=== PATIENT | female | born 1960 | race Caucasian/White ===

== ENCOUNTER 2019-03-23 12:00 | Day surgery (SDC) | payer OTHER ==
[~2019-03-23] VITALS: Ht 152.4 cm; Wt 60.8 kg
[~2019-03-23 12:00] MED LIST: MOBIC15 MG PO; MULTIVITAMINS1 EAC7 PO; OMEPRAZOLE20 MG PO; TENORMIN50 MG PO
--- NOTE | 2019-03-23 14:54 | NUR ---
03/23/19 Brandyn3 Rylee Arenas 1450-PATIENT ARRIVED TO PACU ON 3L NC AWAKE DENIES PAIN OR NAUSEA. PATIENT ORIENTED TO PACU LEGALLY BLIND. ABDOMEN SOFT. PASSING GAS. RR EVEN.
--- NOTE | 2019-03-25 16:19 | OR ---
[facility] [address], [place] [address] Signed DATE OF OPERATION: 03/23/2019 SURGEON: Connie Lambert MD PREOPERATIVE DIAGNOSES: 1. Prior history of gastric ulcer. 2. Recent findings of anemia. POSTOPERATIVE DIAGNOSES: 1. Mild diffuse gastritis without ulceration or bleeding. 2. Poor flap valve consistent with small hiatal hernia. 3. Diverticular changes of sigmoid. No polyps, cancer, or colitis. PROCEDURES PERFORMED: 1. Esophagogastroduodenoscopy with biopsy. 2. Total colonoscopy to cecum. ANESTHESIA: Intravenous sedation, fentanyl 150 mcg and Versed 5 mg total. INDICATION: This 58-year-old white woman is a patient of ANASTACIO Santoyo and is legally blind. She has a previous history of gastric ulcer she says and longstanding reflux disease for which she takes Prilosec on a routine basis. She also takes meloxicam every other day for arthritis type problems. She has had no hematemesis or blood per rectum that she is aware of, though her blindness precludes good assessment in that regard. Occult fecal blood and given her prior history of gastric ulceration and so forth, upper endoscopy is indicated. Additionally, consideration for colonoscopy was made for the same reason. She understands the risks of bleeding, infection, and perforation related to colonoscopy and wished to proceed. FINDINGS: On upper endoscopy, she had mild diffuse gastritis, but no lesions to account for gross bleeding. There was a hiatal hernia but no sign of esophagitis. She had no neoplasm. CLOtest was negative. On colonoscopy, the prep was good. Complete colonoscopy was undertaken of the cecum without question. She only had a few scattered diverticula, but no lesion to account for bleeding per se. DESCRIPTION OF PROCEDURE: The patient was brought to the endoscopy suite and placed in lateral decubitus position Electronically Signed By: CONNIE LAMBERT MD 03/25/19 1619 PATIENT NAME: SUNNY LIANG OPERATIVE REPORT DATE OF : 56 REPORT #: [id number] PHYSICIAN: CONNIE LAMBERT MD PCP: Aspen Blunt REPORT IS CONFIDENTIAL AND NOT TO BE RELEASED WITHOUT AUTHORIZATION [facility] [address], [place] [address] Signed after undergoing topical Hurricaine spray hypopharyngeal anesthesia. A bite block was placed, though she was edentulous. An Olympus video upper endoscope was passed in the hypopharynx. The vocal cords were partially visualized and what was visualized was normal. The scope was advanced to the esophagus throughout its length, it was entirely normal. The scope was advanced to the stomach, which was insufflated with air. There was mild reticular mucosal changes suggestive of chronic gastritis. Pylorus was normal. Scope was passed through the duodenum. There was mild duodenitis of the bulbar portion, although 2nd and 3rd portions were normal. There was no sign of ulceration. Biopsies were obtained. The scope was withdrawn to the stomach. Biopsies were taken of the antrum. Retroflexed view showed mild proximal gastritis. There was a poor flap valve consistent with small hiatal hernia. Scope was withdrawn and distal esophageal biopsy was obtained, although the mucosa was normal. Narrow-Band imaging showed no sign of other abnormality, specifically no Campuzano's epithelium. Careful withdrawal of scope showed no other findings of concern. Plans were made for colonoscopy. The table was rotated and additional sedation given. Digital rectal examination was normal. An Olympus video colonoscope was passed in the rectum and manipulated throughout the colon. Diverticula were seen in the sigmoid and left colon. Ultimately, the cecum was intubated. The ileocecal valve and appendiceal orifice were normal. Scope was withdrawn from that point and examination throughout showed no sign of abnormality other than the diverticula. Retroflexed view was normal as well. The scope was removed. The patient was taken to recovery room in good condition. CONCLUDING DIAGNOSIS: Positive fecal occult blood without clear source other than mild gastritis. She takes meloxicam on an every other day basis and continues with PPI medication. Would have her diminish meloxicam as much as possible and I am going to continue with Prilosec. She will return to the ongoing care of ANASTACIO Santoyo. MD BRIGHT English/SHAHBAZL /[id number] cc: CONNIE Kimball Electronically Signed By: CONNIE LAMBERT MD 03/25/19 1619 PATIENT NAME: SUNNY LIANG OPERATIVE REPORT DATE OF : 56 REPORT #: [id number] PHYSICIAN: CONNIE LAMBERT MD PCP: Aspen Blunt REPORT IS CONFIDENTIAL AND NOT TO BE RELEASED WITHOUT AUTHORIZATION [address] [address] Signed Copies: Aspen Blunt ~ Electronically Signed By: CONNIE LAMBERT MD 03/25/19 1619 PATIENT NAME: SUNNY LIANG OPERATIVE REPORT DATE OF : 56 REPORT #: [id number] PHYSICIAN: CONNIE LAMBERT MD PCP: Aspen Blunt REPORT IS CONFIDENTIAL AND NOT TO BE RELEASED WITHOUT AUTHORIZATION
== END 2019-03-23 15:25 | disposition home or self-care (01) ==
LOC: DS 12:00 → OPS 12:00 → DS 13:00 → OPS 13:00
PROVIDERS: Surgery
PROC: 0DB38ZX Excision of Lower Esophagus, Via Natural or Artificial Opening Endoscopic, Diagnostic (ICD-10-PCS; 2019-03-23)
PROC: 0DJD8ZZ Inspection of Lower Intestinal Tract, Via Natural or Artificial Opening Endoscopic (ICD-10-PCS; 2019-03-23)
PROC: 0DB98ZX Excision of Duodenum, Via Natural or Artificial Opening Endoscopic, Diagnostic (ICD-10-PCS; principal; 2019-03-23 13:00)
PROC: 0DB78ZX Excision of Stomach, Pylorus, Via Natural or Artificial Opening Endoscopic, Diagnostic (ICD-10-PCS; 2019-03-23 13:00)
DX: K29.80 Duodenitis without bleeding (principal); K29.50 Unspecified chronic gastritis without bleeding; K57.30 Diverticulosis of large intestine without perforation or abscess without bleeding; K44.9 Diaphragmatic hernia without obstruction or gangrene; H54.8 Legal blindness, as defined in USA; I10 Essential (primary) hypertension; F17.210 Nicotine dependence, cigarettes, uncomplicated; D64.9 Anemia, unspecified; Z87.19 Personal history of other diseases of the digestive system; Z88.0 Allergy status to penicillin; Z88.2 Allergy status to sulfonamides; Z91.030 Bee allergy status; Z87.11 Personal history of peptic ulcer disease; Z86.79 Personal history of other diseases of the circulatory system
CPT/HCPCS: 88305; 88342; 99153; G0500; J2250; J3010; J7120

== ENCOUNTER 2019-07-19 09:51 | Emergency (ER) | payer OTHER ==
[~2019-07-19] VITALS: Ht 152.4 cm; Wt 62.1 kg
== END 2019-07-19 11:07 | disposition home or self-care (01) ==
LOC: ED 09:51
DX: S92.511A Displaced fracture of proximal phalanx of right lesser toe(s), initial encounter for closed fracture (principal); F17.200 Nicotine dependence, unspecified, uncomplicated; Z88.0 Allergy status to penicillin; Z88.2 Allergy status to sulfonamides; Z91.030 Bee allergy status; Z79.899 Other long term (current) drug therapy; W22.8XXA Striking against or struck by other objects, initial encounter
CPT/HCPCS: 73660; 99283

== ENCOUNTER 2020-12-07 09:08 | Emergency (ER) | payer OTHER ==
[~2020-12-07] VITALS: Ht 152.4 cm; Wt 62.1 kg
[2020-12-07] MEDS ORDERED: MELOXICAM15 MG PO (09:23)
== END 2020-12-07 10:42 | disposition home or self-care (01) ==
LOC: ED 09:08
DX: M54.41 Lumbago with sciatica, right side (principal); Z88.0 Allergy status to penicillin; Z88.2 Allergy status to sulfonamides; Z91.030 Bee allergy status; Z79.899 Other long term (current) drug therapy
CPT/HCPCS: 72100; 73502; 99283-25

== ENCOUNTER 2022-06-14 05:47 | Day surgery (SDC) | payer OTHER ==
[~2022-06-14] VITALS: Ht 152.4 cm; Wt 69.1 kg
[~2022-06-14 05:47] MED LIST changes: +DEPAKOTE ER500 MG PO; +MELOXICAM15 MG PO
--- NOTE | 2022-06-14 05:50 | NUR ---
LE [id number]- PATIENT ARRIVES TO DAY SURGERY WITH SISTER. PATIENT WAS CHECKED IN. PATIENT WAS SALINE LOCKED AND WENT TO X-RAY FROM [id number]. PATIENT RETURNED AND IV FLUIDS CONNECTED AND RUNNING. PATIENT UP TO BATHROOM EVERY COUPLE OF HOURS. PATIENT UPDATED ON SURGERY EVERY 2 HOURS. SISTER STAYED WITH PATIENT. CALL LIGHT WAS WITHIN REACH AT ALL TIMES.
--- NOTE | 2022-06-14 06:16 | NUR ---
COVID 19 SWAB DONE TO BOTH NARES AND SENT TO IN HOUSE LAB.
[2022-06-14] MEDS ORDERED: CELEBREX100 MG PO (06:59)
--- NOTE | 2022-06-14 10:34 | NUR ---
PT ALERT, ORIENTED AND SUPPORTED BY HER SISTER BARRIE, WHO WILL REMAIN FOR DC. PT IS RATHER QUIET, BUT SEEMS PREPARED. GAVE COMFORT, SUPPORT AND PRAYED WITH BOTH. WILL FOLLOW NEEDED
[2022-06-14] MEDS ORDERED: OXYCODON-ACETA1 EAC2 PO (15:37)
[2022-06-14] MEDS ORDERED: IBUPROFEN600 MG PO (15:37)
[2022-06-14] MEDS ORDERED: ACETAMINOPHEN500 MG PO (15:37)
--- NOTE | 2022-06-14 15:41 | NUR ---
06/14/22 1541 Raegan Welsh 1513 PT ARRIVED TO PACU ON 10L VIA MASK, PT STARTS GRABBING AT HER FACE. ORAL AIRWAY IN PLACE AND RESP EVEN AND UNLABORED. 1514 ORAL AIRWAY REMOVED. PT CONTINUES TO GRAB AT HER FACE TWO RNS AT BEDSIDE REORIENTING PT TO PACU. VSS. 1516 O2 REMOVED AND PT EASILY FALLS ASLEEP OFF AND ON. 1520 PT REPORTS PAIN 06/02. 1527 PAIN MEDICATION GIVEN. O2 SAT 92% AND ENCOURGED TO DEEP BREATHE AND COUGH. PT ABLE TO DO SO. 1535 NC PLACED 2L DUE TO O2 SAT 86%, O2 INCREASED TO MID 90S. PT REPORTS PAIN IS BETTER 6-06/02. 1539 PT ASLEEP OFF AND ON. PT DENIES NAUSEA. VSS. PT SIPPING WATER PER REQUEST.
--- NOTE | 2022-06-14 15:55 | NUR ---
6853-PATIENT BACK TO ROOM FROM PACU ON 2L VIA SD. RECEIVED REPORT FROM [facility]. PATIENT IS DROWSY. RESP EVEN AND UNLABORED. ENCOURAGED PATIENT TO TAKE DEEP BREATHS. DRESSING IS CLEAN, DRY, AND INTACT. VSS. PATIENT EATING PUDDING AND TAKING SIPS OF WATER. SISTER IN ROOM. CALL LIGHT WITHIN REACH.
--- NOTE | 2022-06-14 16:26 | NUR ---
1615-O2 TITRATED OFF. O2 SATS IS 96% ON RA. PATIENT UP TO RESTROOM WITH 1 RN ASSIST. GAIT UNSTEADY BUT TOLERATED WELL. PATIENT VOIDED 250ML. 1620-PATIENT BACK TO ROOM AND LAYING DOWN. RATES PAIN 7/10. REFILLED PATIENTS WATER.
--- NOTE | 2022-06-14 16:40 | NUR ---
1631-PAIN MEDICATION GIVEN PER EMAR. 1640-PATIENT EATING SOUP AND SANDWICH.
--- NOTE | 2022-06-14 16:56 | NUR ---
1656- PATIENT SITTING UP IN BED FINISHING EATING. RESP EVEN AND UNLABORED. O2 SAT 93% ON RA. DRESSING WAS CLEAN, DRY, AND INTACT. RATES PAIN 4/10 AND DENIES NAUSEA. PATIENT IS READY TO GO HOME.
--- NOTE | 2022-06-14 17:24 | NUR ---
1710-PROVIDED PATIENT AND SISTER WITH DISCHARGE INSTRUCTIONS. ALL THERE QUESTIONS WERE ANSWERED. THEY WILL HAVE A FAMILY MEMBER DROP OFF HER PAIN RX AT THE PHARMACY. PATIENT AMBULATES TO WHEELCHAIR. RIDE PROVIDED TO THE FRONT OF HOSPITAL. PATIENT AND SISTER WANTED TO SIT OUTSIDE WHY THEY WAIT FOR THEIR CARE RIDE. ADVISED PATIENT IF THEY HAVE ANY QUESTIONS OR CONCERNS TO GO BACK IN TO THE HOSPITAL AND ASK FOR HELP. THEY BOTH VERBALIZED UNDERSTANDING.
--- NOTE | 2022-06-17 09:36 | OR ---
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 POSTOPERATIVE DIAGNOSES: 1. 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 2. Negative sentinel lymph node frozen pathology. PROCEDURES: 1. Injection of methylene blue for sentinel lymph node identification. 2. Deep left axillary lymph node biopsy x2. 3. Left needle localized, partial mastectomy upper inner quadrant. ANESTHESIA: General, LMA; Connie Leon CRNA INDICATIONS: This 61-year-old disabled white woman is a patient of ANASTACIO Santoyo and was found on mammogram by Dr. Villagomez to have an abnormality of the left breast at the 9 o'clock position. A cluster of pleomorphic microcalcifications was noted, considered suspicious. A stereotactic biopsy was performed by Dr. Pedro Capone of Radiology on May 07, 2022 confirming multifocal microinvasive ductal carcinoma as well as ductal carcinoma in situ. The majority of the biopsy was ductal carcinoma in situ. The patient has had no breast pain or no nipple discharge. She has no known family history of breast cancer. She was admitted at this time to undergo a left needle localized partial mastectomy of the offending lesion in the upper inner aspect of the breast as well as sentinel lymph node biopsy, possible axillary dissection depending on the extent of disease. The risk of bleeding, infection, cosmetic deformity, and other unforeseen complications was reviewed with her in detail. She and her caregivers understand and wished to proceed. FINDINGS: Uptake with radionuclide was notable in the low to mid axilla. Methylene blue injection was noted to have good uptake, two sentinel lymph nodes as well. Two sentinel lymph nodes were clearly identified. Both negative on frozen pathology. The remaining axilla Electronically Signed By: CONNIE LAMBERT MD 06/17/22 0936 PATIENT NAME: SUNNY LIANG OPERATIVE REPORT DATE OF : 56 REPORT #: [id number] PHYSICIAN: CONNIE LAMBERT MD PCP: Aspen Blunt REPORT IS CONFIDENTIAL AND NOT TO BE RELEASED WITHOUT AUTHORIZATION [facility] [address] [place], [place] [address] Signed was clinically negative. As regards the lesion of the breast needle localization allowed for wide resection which extended from the medial aspect toward the subareolar area. Specimen radiograph confirmed the offending lesion was within the excision site and clinically the margins appear negative. PROCEDURE IN DETAIL: The patient was brought to the operating room after having undergone needle localization of the lesion, the wire emanating from the medial aspect of the left breast as well as injection of radionuclide for sentinel lymph node identification. She was given a general LMA type anesthetic. Preoperative antibiotic clindamycin was given and sequential compression device stockings and heparin subcutaneously administered. After satisfactory anesthesia 1 mL of methylene blue dye was injected in the subepithelial area in the upper outer aspect of the left breast in the areolar margin. The breast was then prepared with spray Betadine solution and draped sterilely. The needle had been trimmed to half length which emanated from the medial aspect of the left breast. After sterile draping, a C-Trak gamma probe device was applied to the left axilla with the enclosed sterile sheath identifying an area of good uptake. Use of the specimen rather the mammogram as well as the radionuclide scan was used as reference throughout the operation. The area of active uptake was noted in the low to mid axilla and small transverse incision was made there. Using blunt electrocautery dissection, subcutaneous tissue was and ultimately axillary fat entered. A thin blue line of lymphatic uptake was noted. It was followed deep into the axilla where a 1.5 cm lymph node was identified and associated with much smaller 5 to 6 mm lymph node. Both were excised completely after application of hemoclips to the area. The sentinel nodes measured two in number and were with avid radionuclide uptake and blue dye. They were sent for frozen pathology. Additional interrogation of the left axilla showed no evidence of significant uptake of radionuclide or dye. The wound was then packed with laparotomy pack. Attention was turned towards the primary breast lesion, the upper inner aspect of the left breast. The wire emanated from the breast on the medial aspect in the transverse position. An incision was made along the line of skin tension transversely in the dermis with electrocautery. Wire was delivered into the wound and the base of the breast tissue was grasped with an Allis clamp, incorporating the wire itself. Wide resection was undertaken and transverse configuration taking special care to go wide deep and far along the path of the needle. This specimen was oriented with a short Electronically Signed By: CONNIE LAMBERT MD 06/17/22 0936 PATIENT NAME: SUNNY LIANG OPERATIVE REPORT DATE OF : 56 REPORT #: [id number] PHYSICIAN: CONNIE LAMBERT MD PCP: Aspen Blunt REPORT IS CONFIDENTIAL AND NOT TO BE RELEASED WITHOUT AUTHORIZATION [address] [address] Signed stitch superior and a long stitch lateral prior to explantation from the breast itself. Once the specimen was passed for specimen radiograph, irrigation was undertaken with sterile water. Hemostasis was assured with electrocautery and 2-0 silk suture as necessary. Parenchymal reapproximation was undertaken with interrupted 2-0 Vicryl in several layers and the skin closed with a running subcuticular 3-0 Vicryl. At this point, the axillary lymph nodes were returned and found to be negative for metastatic disease. Examination of the axilla showed no untoward bleeding. Irrigation was undertaken. The wound closed in layers of 2-0 Vicryl and a running subcuticular 3-0 Vicryl. Steri-Strips were applied to each site. By this point, the specimen radiograph confirmed that the offending abnormality of the preoperative mammogram was contained in the excised specimen. The patient was allowed to emerge from anesthesia, extubated, and taken to the recovery room in good condition having suffered no complication. Blood loss was less than 25 mL. Sponge, needle, and instrument counts reported as correct x3. MD BRIGHT English/SHAHBAZL /[id number] cc: CONNIE Kimball Copies: Aspen Blunt ~ Electronically Signed By: CONNIE LAMBERT MD 06/17/22 0936 PATIENT NAME: SUNNY LIANG OPERATIVE REPORT DATE OF : 56 REPORT #: [id number] PHYSICIAN: CONNIE LAMBERT MD PCP: Aspen Blunt REPORT IS CONFIDENTIAL AND NOT TO BE RELEASED WITHOUT AUTHORIZATION
--- NOTE | 2022-06-26 12:24 | PATH ---
[facility] [address] [facility] [place], [place] [address] Signed THIS IS AN ADDENDUM REPORT SPECIMEN(S): A LT SLN #1 2 SPECIMEN(S): B LT UPPER MEDIAL BREAST SPECIMEN SOURCE: A. LT SLN #1 2 B. LT UPPER MEDIAL BREAST CLINICAL HISTORY: Infiltrating duct carcinoma of left breast. Stitch avila SLN. FROZEN SECTION DIAGNOSIS: A. SLN #1+ #2: - No evidence of malignancy in two lymph nodes. Dr. Ponce, 06/14/22, 2:46 p.m. Frozen section diagnoses called to Dr. Avilez. AI (under the direct supervision of a pathologist) Per request by Dr. Ponce, specimen B is revisited. Upon further sectioning a silver metallic biopsy marker is found within slice 19. The marker is 0.4 cm from the lateral margin, 0.7 cm from the deep margin, 1.4cm from the superior margin, 2.1 cm from the anterior margin, 3.3 cm from the inferior margin, and 8.2 cm from the medial margin. and additional sections are submitted as follows: B17-B26 slice 15 cross-sectioned, entirely (B17-B18, B19-B20, B21-B22, B23-B24, and B25-B26 are bivalved sections) B27-B31 slice 18 trisected, entirely (B28-B29 and B30-B31 are bivalved sections) B32-B36 slice 19 trisected, entirely (B33 contains the biopsy marker; B33-B34 and B35-B36 are bivalved sections) B37-B40 slice 20 bisected, entirely (B37-B38 and B39-B40 are bivalved sections) B41-B43 lateral end perpendicularly sectioned, entirely JENNIFER 06/18/22 10:07am Entire medial end and slices # 13 and 14 are submitted in [address] Ponce request. Cassette summary: (B 44) medial end, perpendicular section, entirely submitted (B 45-B 48) slice #13, entirely submitted (B 49-B 51) slice #14, entirely submitted JS (under the direct supervision of a pathologist) PATIENT NAME: SUNNY LIANG PATHOLOGY DATE OF : 56 REPORT #: [id number] PHYSICIAN: SUSIE WALTERS PCP: Aspen Blunt REPORT IS CONFIDENTIAL AND NOT TO BE RELEASED WITHOUT AUTHORIZATION [facility] [address] [place] [address] Signed The Gross Description was prepared using a voice recognition system. The report was reviewed for accuracy; however, sound-alike word errors, addition and/or deletions may occur. If there is any question about this report, please contact Client Services. FINAL PATHOLOGIC DIAGNOSIS: A. Hartshorn lymph nodes #1 and #2, left axilla, excisional biopsy: - No evidence of malignancy in two lymph nodes (0/2). - See comment. B. Breast, left, upper medial quadrant, lumpectomy: - Invasive ductal carcinoma with the following features: - Tumor site: 9 o'clock (per previous biopsy ([id number]). - Histologic type: Invasive carcinoma of no special type (ductal). - Histologic grade (Tammie histologic score): - Glandular (acinar)/tubular differentiation score: 3. - Nuclear pleomorphism score: 1. - Mitotic rate score: 1. - Overall grade: Grade 1 (total score 5 of 9). - Tumor size: 3 mm in greatest dimension. - Tumor focality: Single focus of invasive carcinoma. - Ductal carcinoma in situ (DCIS): Present, negative for extensive intraductal component (DIC). - Architectural patterns: Cribriform and comedo. - Nuclear grade: Grade 2 (intermediate). - Necrosis: Present, central (expansive) "comedo" necrosis. - Lymphovascular invasion: Not identified. - Microcalcifications: Present associated with DCIS. - Treatment effect in the breast: No known presurgical therapy. - Margin status for invasive carcinoma: - All margins negative for invasive carcinoma. - Distance from invasive carcinoma to closest margin: 8 mm to superior margin. - Margin status for DCIS: 2 mm to lateral margin. - 1 mm to anterior margin - All other margins >3 mm. - Regional lymph nodes: All regional lymph nodes negative for tumor. - Total number of lymph nodes examined: 2. - Number of sentinel lymph nodes examined: 2. - Breast biomarker studies: Please refer to previously performed testing ([id number]), interpreted as ER positive, WA positive, and HER2 unable to be PATIENT NAME: SUNNY LIANG PATHOLOGY DATE OF : 56 REPORT #: [id number] PHYSICIAN: SUSIE WALTERS PCP: Aspen Blunt REPORT IS CONFIDENTIAL AND NOT TO BE RELEASED WITHOUT AUTHORIZATION [address] [address] Signed determined, see comment. - Additional pathologic findings: Fibrocystic changes, ALH. - Pathologic stage classification (PTNM, AJCC 8th ed.): pT1a (sn) Pn0. - See comment. COMMENT: HER 2 by IHC will be repeated given the additional amount of invasive carcinoma on the resection specimen, and reported in an addendum. NAL:DF:cml:C1NR MICROSCOPIC EXAMINATION: Histologic sections of all submitted blocks are examined by light microscopy. These findings, together with the gross examination, support the pathologic diagnosis. Immunohistochemical stains (with appropriately staining controls) were performed. Regarding specimen A: - Garcia cytokeratin (AE1/AE3) was performed on the sentinel lymph nodes (A1, A2) and confirms the absence of metastatic tumor cells. Regarding specimen B: - The focus of invasive carcinoma is confirmed with p63 and smooth muscle myosin heavy chain (B34) demonstrating loss of myoepithelial cells surrounding the invasive carcinoma. Displaced tumor cells are seen adjacent to the biopsy site, which lacks surrounding smooth muscle myosin heavy chain staining but given the morphologic appearance are favored to be displaced artifactually. An E-cadherin on a premium representative section to evaluate a intraductal proliferation is positive for membranous staining, supporting DCIS (B17). An additional smooth muscle myosin was performed on a section surrounding the DCIS (B1) and confirms the presence of myoepithelial cells surrounding the DCiS. A CK5/6 and ER were performed to evaluate a focus of ductal proliferation approximately 1 mm from the anterior margin and the ductal epithelial cells demonstrate ER over expression and loss of CK5/6, confirming DCIS. NAL:cml GROSS DESCRIPTION: Two specimens are received in two containers, labeled "TH." A. The specimen, labeled "TH, A," and designated on the requisition "left SLN #1+2 (stitch avila SLN)," is received fresh for frozen section diagnosis and PATIENT NAME: SUNNY LIANG PATHOLOGY DATE OF : 56 REPORT #: [id number] PHYSICIAN: SUSIE PATHOLOGY PCP: Aspen Blunt REPORT IS CONFIDENTIAL AND NOT TO BE RELEASED WITHOUT AUTHORIZATION [facility] [address] [place], [place] [address] Signed consists of two fragments of fat, each with a stitch. Lymph node #1 is 1.7 x 0.5 x 0.3 cm and lymph node #2 is 2.0 x 0.9 x 0.4 cm. Each lymph node is bisected to reveal pink-du, partially fat effaced lymph node parenchyma. The specimen is entirely submitted first for frozen section analysis and resubmitted for permanent histologic examination as the following: A1 remainder of frozen section lymph node #1. A2 remainder of frozen section lymph node #2. A3-A4 remainder specimen (A3 has the larger of the two remaining pieces and A4 has the smaller of the two remaining pieces) B. The specimen, labeled "TH, B," and designated on the requisition "left upper medial breast, short = superior, long = lateral," is received in formalin and consists of an 88.5 g, irregularly-shaped, yellow, lobulated, 10.5 x 6.2 x 4.8 cm fibrofatty tissue piece that is oriented with a short suture indicating superior and the long suture indicating lateral. Additionally, the specimen has a silver metallic localization wire extending from the superior lateral surface. The specimen is inked as follows: Superior = blue; inferior = green; anterior = yellow; posterior = black; medial = red; lateral = orange. The specimen is sectioned from medial to lateral into 21 slices to reveal a 0.6 x 0.5 x 0.5 cm, du-white, indurated lesion (slice 16-17). The localization wire is located within the lesion within slice 17. The lesion is 0.4 cm from the lateral margin, 1.2 cm from the anterior margin, 1.5 cm from the superior margin, 1.8 cm from the deep margin, 2.1 cm from the inferior margin, and 8.7 cm from the medial margin. The lesion is without a grossly identifiable biopsy marker. The remaining parenchyma is comprised of yellow fibrofatty and du-white fibroglandular tissue without an additional discrete mass/lesion. Fibroglandular tissue comprises approximately 5% of the remaining parenchyma. [employer] sections are submitted as follows: B1-B6 slice 17 trisected, entirely (B1-B2, B3-B4, and B5-B6 are bivalved sections) B7-B12 slice 16 cross-sectioned, entirely (B7-B8, and B10-B11 are bivalved sections) B13 nearest inferior margin to lesion (slice 12) B14 nearest medial margin to lesion (slice 7) B15-B16 remaining parenchyma including areas of fibroglandular tissue (slice 7 and 13 respectively) Cold ischemic time: Grossly determined due to lack of information PATIENT NAME: SUNNY LIANG PATHOLOGY DATE OF : 56 REPORT #: [id number] PHYSICIAN: SUSIE WALTERS PCP: Aspen Blunt REPORT IS CONFIDENTIAL AND NOT TO BE RELEASED WITHOUT AUTHORIZATION [address] [address] Signed Formalin fixation time: Approximately 70 hours ADDITIONAL NOTES: Immunohistochemical and/or in situ hybridization studies were performed on this case with the appropriate positive controls that react as expected. This test was developed and its performance characteristics determined by [email or web address]. It has not been cleared or approved by the U.S. Food and Drug Administration. The FDA has determined that such clearance or approval is not necessary. This test is used for clinical purposes. It should not be regarded as investigational or for research. [email or web address] is certified under the Clinical Laboratory Improvement Amendments of 1988 (CLIA) as qualified to perform high complexity clinical laboratory testing. This assay has not been validated for specimens that have been decalcified. The technical component was performed by [email or web address], [address] [place] [id number] (CLIA# [id number]). [email or web address], [address] [place] [id number] (CLIA# [id number]). PERFORMING LABORATORY: Frozen section performed at [address], [address] [place] [id number] (CLIA# [id number]) The technical component was performed by [email or web address], [address] [place] [id number] (CLIA# [id number]). Professional interpretation [email or web address], [address] [place] [id number] (CLIA# [id number]). The technical and professional components were performed by [email or web address], [facility] [place] [address] (CLIA#: [id number]). REASON FOR ADDENDUM: To report results of additional testing. ADDENDUM PATHOLOGIC DIAGNOSIS: B. HER-2 protein by IHC, left breast upper medial quadrant: - Negative; IHC score 0. LY:[facility] ADDENDUM MICROSCOPIC EXAMINATION: Block: B34. The fixation is 10% buffered formalin. The length of fixation is 70 hours, PATIENT NAME: SUNNY LIANG PATHOLOGY DATE OF : 56 REPORT #: [id number] PHYSICIAN: SUSIE PATHOLOGY PCP: Aspen Blunt REPORT IS CONFIDENTIAL AND NOT TO BE RELEASED WITHOUT AUTHORIZATION [facility] [address] [place] [id number] Signed meeting ASCO/CAP guidelines. HER-2 protein expression by immunohistochemistry using the FDA-approved HER-2 Pathway is performed at [email or web address], [place], [place], at the request of Dr. Bright Vidal. The assay has not been validated for decalcified specimens. Standardized batch control materials react appropriately. The presence of tumor is confirmed. Scoring is according to ASCO/CAP 2018 guidelines for breast HER-2 testing. This assay and scoring method are not specifically validated for tissue types other than breast. No staining is observed; score 0. Diagnostician: Bright Vidal DO Pathologist Diagnostician: Abebe Horne MD Pathologist Electronically Signed 06/26/2022 Copies: ~ PATIENT NAME: SUNNY LIANG PATHOLOGY DATE OF : 56 REPORT #: [id number] PHYSICIAN: SUSIE WALTERS PCP: Aspen Blunt REPORT IS CONFIDENTIAL AND NOT TO BE RELEASED WITHOUT AUTHORIZATION
== END 2022-06-14 17:10 | disposition home or self-care (01) ==
LOC: OPS 05:47 → DS 05:47 → OPS 08:00 → MAM 08:00 → EDSTATUS 08:00 → NUC 09:00 → OPS 17:10
PROVIDERS: ATTEND Surgery
PROC: 0HBU0ZZ Excision of Left Breast, Open Approach (ICD-10-PCS; principal; 2022-06-14 10:00)
DX: C50.212 Malignant neoplasm of upper-inner quadrant of left female breast (principal); Z17.0 Estrogen receptor positive status [ER+]; H54.8 Legal blindness, as defined in USA; F31.81 Bipolar II disorder; I10 Essential (primary) hypertension; Z88.0 Allergy status to penicillin; Z88.2 Allergy status to sulfonamides; Z79.899 Other long term (current) drug therapy; Z87.11 Personal history of peptic ulcer disease; Z20.822 Contact with and (suspected) exposure to COVID-19
CPT/HCPCS: 19281; 38792; 76098; 87502; A9541; C9803; J0131; J0461; J1100; J1644; J1885; J2250; J2405; J2704; J2765; J3010; J7121; Q9968; U0003

== ENCOUNTER 2025-02-01 21:02 | Emergency (ER) | payer OTHER ==
[~2025-02-01] VITALS: Ht 152.4 cm; Wt 65.8 kg
[~2025-02-01 21:02] MED LIST changes: +ACETAMINOPHEN500 MG PO; +CELEBREX100 MG PO; +CYCLOBENZAPRINE10 MG PO; +IBUPROFEN600 MG PO; +OXYCODON-ACETA1 EAC2 PO
[2025-02-01] MEDS ORDERED: ANASTROZOLE1 MG PO (21:04)
[2025-02-01 21:22] LABS: EOSINOPHILS 1.1 % (0-6); HEMOGLOBIN 12.5 g/dL (12.0-18.0); MCH 35.6 (27-36); MCHC 34.6 g/dl (30-36); MCV 102.7 fl (81-99); MONOCYTES 10.6 % (0-12); NEUTROPHILS 41.3 % (39-80); PLATELET COUNT 337 K/uL (140-440); RBC 3.51 M/ul (4.3-5.7); RDW 13.8 (10.5-15.0)
[2025-02-01 21:36] LABS: ALBUMIN 3.6 g/dL (3.4-5.0); ALBUMIN/GLOBULIN RATIO 0.92 (1.1-2.4); ANION GAP 14.7 (7-21); BILIRUBIN, TOTAL 0.4 mg/dL (0.2-1.0); BUN/CREATININE RATIO 18.05 (6.0-28.6); CALCIUM 9.1 mg/dL (8.5-10.1); CREATININE, SERUM 0.72 mg/dL (0.55-1.02); POTASSIUM 4.7 mmol/L (3.5-5.1); PROTEIN, TOTAL 7.5 g/dL (6.4-8.2)
[2025-02-01 22:55] VITALS: BP 144/81
== END 2025-02-01 22:55 | disposition home or self-care (01) ==
LOC: ED 21:02
PROVIDERS: Family Medicine
DX: S01.01XA Laceration without foreign body of scalp, initial encounter (principal); W19.XXXA Unspecified fall, initial encounter; Z88.0 Allergy status to penicillin; Z88.2 Allergy status to sulfonamides; Z91.030 Bee allergy status; Z79.899 Other long term (current) drug therapy
CPT/HCPCS: 12002; 36415; 70450; 72125; 80053; 85025; 99284-25